=== PATIENT | female | born 1985 | race Caucasian/White ===

== ENCOUNTER 2016-04-22 16:16 | Emergency (ER) | payer OTHER ==
[~2016-04-22] VITALS: Ht 154.9 cm; Wt 53.0 kg
[2016-04-22 16:32] VITALS: BP 119/85; PULSE 84; RESP 18; TEMP 98.1; O2SAT 97
[2016-04-22 16:56] LABS: BLOOD, URINE LARGE (NEG); GLUCOSE,URINE NEG (NEG); KETONE, URINE NEG (NEG); NITRITE,URINE NEG (NEG)
[2016-04-22 17:12] LABS: URINE COLOR YELLOW (YELLW/STRAW)
[2016-04-22 17:14] LABS: BACTERIA, URINE RARE /hpf; CALCIUM OXALATE CRYSTALS,URINE MOD /hpf; COMMENT (UR) CULT NOT INDICATED; CULTURE IF INDICATED CULT NOT INDICATED; RBC, URINE 0-3 /hpf (0-3); SQUAMOUS EPITHELIAL CELL URINE 0-5 /hpf (0-5); WBC, URINE 0-2 /hpf (0-5)
== END 2016-04-22 18:34 | disposition left against medical advice (07) ==
LOC: PHED 16:16
DX: Z53.21 Procedure and treatment not carried out due to patient leaving prior to being seen by health care provider (principal)
CPT/HCPCS: 81001; 84703; 99281

== ENCOUNTER 2016-09-23 14:17 | Emergency (ER) | payer OTHER ==
[~2016-09-23] VITALS: Ht 152.4 cm; Wt 48.6 kg
[2016-09-23 14:41] VITALS: BP 118/81; PULSE 90; RESP 16; TEMP 98.1; O2SAT 97
[2016-09-23] MEDS ORDERED: AUGM875T3 PO (15:17)
--- NOTE | 2016-09-23 15:24 | PD ---
HPI Chief Complaint: Cold / Flu Symptoms Time Seen by Provider: 15:10 Travel History International Travel<30 days: No Contact w/Intl Traveler<30days: No Traveled to known affect area: No History of Present Illness HPI 31-year-old female presents to the emergency room for evaluation of productive cough, congestion, sore throat, fever, chills, headache, and sinus pressure for the past 6 days. Patient states she worsened 3 days ago at which time she developed a green, productive cough and fevers. Maximum temperature at home was 103. She's been taking Tylenol for fevers. She tried sinus medication without relief in symptoms. No chronic medical conditions or daily medications. Patient smokes cigarettes. PFSH Past Medical History Medical History: Denies Significant Hx Asthma: No COPD: No ?: Not LMP: 08/21/16 Social History Alcohol Use: Yes Tobacco Use: Yes Allergies-Medications (Allergen,Severity, Reaction): Coded Allergies: No Known Allergies (Verified , 09/23/16) Reported Meds & Prescriptions Reported Meds & Active Scripts Active Augmentin (Amoxicillin-Clavulanate) 875-125 Mg Tab 1 Tab PO BID 7 Days Review of Systems Except as stated in HPI: all other systems reviewed are Neg Physical Exam Narrative GENERAL: Well-nourished, well-developed female in no acute distress. Afebrile. Ambulatory. SKIN: Focused skin assessment warm/dry. HEAD: Normocephalic. Tenderness to palpation over the maxillary sinuses. EYES: No scleral icterus. No injection or drainage. ENT: Mucosa pink and moist. Mild erythema without edema or exudates. No uvular edema. No uvular, palatal, or tonsillar deviation. Airway patent. Nasal turbinates appear normal without nasal blood, purulent drainage or septal hematoma. EARS: Bilateral pinnae and external canals appear within normal limits. Bilateral tympanic membranes without erythema, dullness or perforation. NECK: Supple, trachea midline. No JVD or lymphadenopathy. CARDIOVASCULAR: Regular rate and rhythm without murmurs, gallops, or rubs. RESPIRATORY: Breath sounds equal bilaterally. No accessory muscle use. No crackles, rales, wheezes, or rhonchi. Data Data Last Documented VS Vital Signs Date Time Temp Pulse Resp B/P Pulse Ox O2 Delivery O2 Flow Rate FiO2 09/23/16 14:41 98.1 90 16 118/81 97 MDM Medical Decision Making Medical Screen Exam Complete: Yes Emergency Medical Condition: Yes Medical Record Reviewed: Yes Differential Diagnosis Sinusitis, upper respiratory infection, pneumonia, streptococcal pharyngitis Narrative Course 31-year-old female presents to the emergency room for evaluation of cough and cold symptoms for the past 6 days. Patient is afebrile and well-appearing in the emergency room. Her exam is reassuring. Given acute worsening of symptoms and development of fevers, patient will be treated for bacterial sinusitis with Augmentin. Told to follow up with primary care physician or return to the emergency room for worsening symptoms. She understands and agrees to plan. Diagnosis Primary Impression: Bacterial sinusitis Referrals: Primary Care Physician Patient Instructions: General Instructions, Sinusitis (ED) Additional Instructions: Rest and drink plenty of fluids. Augmentin as directed, until gone. Take ibuprofen with food as directed, as needed for pain. Apply ice to the affected area for 20 minutes at a time, as needed for pain and swelling. Follow-up with a primary care physician. Return to the emergency room for worsening symptoms. Med/Other Pt SpecificInfo: Prescription(s) given Scripts Amoxicillin-Clavulanate (Augmentin)875-125 Mg Tab1 Tab PO BID 7 Days Ref 0 Prov:Gelacio Villalba MD 09/23/16 Disposition: 01 DISCHARGE HOME Condition: Stable Lyla Bronson Sep 23, 2016 15:24
== END 2016-09-23 15:31 | disposition home or self-care (01) ==
LOC: PHED 14:17 → PHEFT 15:31
DX: J32.9 Chronic sinusitis, unspecified (principal)
CPT/HCPCS: 99283